=== PATIENT | male | born 2000 | race Two or more races ===

== ENCOUNTER → 2021-02-22 | Emergency (ER) | payer OTHER ==
[~2021-02-22] VITALS: Ht 162.6 cm; Wt 59.0 kg
== END | disposition home or self-care (01) ==
LOC: ER 13:50
DX: S61.220A Laceration with foreign body of right index finger without damage to nail, initial encounter (principal); W26.0XXA Contact with knife, initial encounter; Y93.89 Activity, other specified; Y92.69 Other specified industrial and construction area as the place of occurrence of the external cause; Y99.8 Other external cause status

== ENCOUNTER 2021-03-05 17:16 | Emergency (ER) | payer OTHER ==
[~2021-03-05] VITALS: Ht 167.6 cm; Wt 61.2 kg
== END 2021-03-05 19:06 | disposition home or self-care (01) ==
LOC: ER 17:16
DX: Z48.02 Encounter for removal of sutures (principal)

== ENCOUNTER 2021-04-11 11:50 | Emergency (ER) | payer OTHER ==
[~2021-04-11] VITALS: Ht 165.1 cm; Wt 59.0 kg
== END 2021-04-11 14:31 | disposition home or self-care (01) ==
LOC: ER 11:50
DX: Z20.822 Contact with and (suspected) exposure to COVID-19 (principal)